=== PATIENT | male | born 1970 | race Caucasian/White ===

== ENCOUNTER → 2024-03-16 | Outpatient (CLI) | payer BC ==
--- NOTE | 2024-03-17 23:11 | MR ---
EXAMINATION TYPE: MR Prostate wo/w con DATE OF EXAM: 03/16/2024 COMPARISON: None. IMAGE QUALITY: Good. INDICATION: Elevated PSA PSA: 4.75 ng/ml in July 2023 and 6.59 on February 19, 2024 Recent Biopsy and Date: None Pathology Report (If Applicable): n/a TECHNIQUE: Examination was performed using a 3T MRI without an endorectal coil. Multiparametric imaging was perf ormed with T2 mutliplanar sequences, axial diffusion weighted imaging and dynamic contrast enhanced i maging, utilizing 9 mL intravenous Gadobutrol gadolinium contrast. FINDINGS: PROSTATE VOLUME: 5.2 cm SI x 4.0 cm AP x 5.4 cm LR Vol= 57.7 cc PSA DENSITY: 0.11 ng/ml/cc Enlarged prostate consistent with BPH. No areas of suspicious diminished signal on ADC mapping. No ar eas of increased signal on diffusion-weighted imaging. Peripheral zone hypertrophy is present. There is heterogeneous transitional zone with multiple nodules. No suspicious T2 hypointense areas. Seminal vesicles are unremarkable. Urinary bladder shows no suspicious wall thickening or trabeculati on. There is small to moderate-sized fat-containing left inguinal hernia. No destructive osseous lesi ons are seen. IMPRESSION: Enlarged prostate consistent with BPH. A focus of clinically significant cancer is not identified. Highest Assessment Category: 2 MRI Stage: T0 N0 M0 based on review of pelvic images. False negative rates for MRI range from 5-20% depending on risk profile. Assessment Categories: 1 ? Very low (clinically significant cancer is highly unlikely to be present) 2 ? Low (clinically significant cancer is unlikely to be present) 3 ? Intermediate (the presence of clinically significant cancer is equivocal) 4 ? High (clinically significant cancer is likely to be present) 5 ? Very high (clinically significant cancer is highly likely to be present) [facility], , 03/17/2024 11:08 PM
== END | disposition home or self-care (01) ==
LOC: RADMRIMAIN 06:31
PROVIDERS: ATTEND Urology
DX: R97.20 Elevated prostate specific antigen [PSA] (principal); N40.0 Benign prostatic hyperplasia without lower urinary tract symptoms
CPT/HCPCS: 72197; A9585